=== PATIENT | female | born 1965 | race Caucasian/White ===

== ENCOUNTER → 2020-06-30 | Outpatient (CLI) | payer OTHER ==
[~2020-06-30] MED LIST: FLUO20CA22 PO; MULTCAP PO; [UNRECOGNIZED DRUG - OTHER] PO
--- NOTE | 2020-06-30 14:46 | REP ---
INDICATION: BREAST CA FILE ROOM. COMPARISON: None. TECHNIQUE/RADIOTRACER AND DOSE: Following the intravenous administration of 27.1 mCi technetium 99 M in vitro labeled red blood cells, using the ultra tag method, gated sequential images of the heart are performed in various projections. FINDINGS: Left ventricle demonstrates excellent symmetrical wall motion with no evidence of paradoxical motion. Left ventricular ejection fraction is calculated to be 79.8%. IMPRESSION: Excellent left ventricular wall motion. Left ventricular ejection fraction is 79.8%. <Electronically signed by Reg Crowe > 06/30/20 [id number]
== END ==
LOC: M RAD 12:52
PROVIDERS: ATTEND Specialist
DX: C50.119 Malignant neoplasm of central portion of unspecified female breast (principal)

== ENCOUNTER → 2020-07-02 | Outpatient (CLI) | payer OTHER ==
[~2020-07-02] MED LIST changes: +ISOVUE-370 76% 100ML VIAL As Ordered ONE
--- NOTE | 2020-07-02 17:15 | REP ---
INDICATION: BREAST CA. COMPARISON: None. TECHNIQUE: 100 cc Isovue 370. FINDINGS: The mediastinum and pulmonary yaw are within normal limits. There is no evidence of a mass or adenopathy. There are no pleural or pericardial effusions. The imaged upper abdomen is within normal limits. The imaged osseous structures are within normal limits. Spinal degenerative changes and discogenic degenerative changes are noted throughout. Evaluation of the lung manuel shows no abnormal nodules, masses, or opacities. IMPRESSION: 1. There is no evidence of acute disease. 2. Radiodensities within a left breast density likely secondary to previous surgical procedure. <Electronically signed by Tyron Gannon > 07/02/20 [id number]
== END ==
LOC: M RAD 15:13
PROVIDERS: ATTEND Specialist
DX: C50.919 Malignant neoplasm of unspecified site of unspecified female breast (principal)

== ENCOUNTER → 2020-07-09 | Outpatient (CLI) | payer OTHER ==
[~2020-07-09] MED LIST changes: -ISOVUE-370 76% 100ML VIAL As Ordered ONE; +MILK175C6 PO; +ONDA8TAB10 PO; +PROC10TA4 PO; +VITA-243 PO
--- NOTE | 2020-07-09 17:10 | REP ---
INDICATION: BREAST CANCER. COMPARISON: None. TECHNIQUE/RADIOTRACER AND DOSE: 22.0 mCi of Technetium-99m MDP was injected and standard whole-body bone scanning is acquired. FINDINGS: There is a normal distribution of skeletal tracer with uptake in bilateral kidneys and in the urinary bladder. There is no evidence to suggest skeletal metastatic disease. IMPRESSION: Negative whole body radionuclide bone scan. <Electronically signed by Brannon Arreaga > 07/09/20 [id number]
== END ==
LOC: M RAD 10:02
PROVIDERS: ATTEND Specialist
DX: Z12.39 Encounter for other screening for malignant neoplasm of breast (principal)
CPT/HCPCS: 78306; A9503

== ENCOUNTER → 2020-07-09 | Outpatient (CLI) | payer OTHER ==
[~2020-07-09] MED LIST changes: +LIDOCAINE 1% MDV 20ML VIAL As Ordered ONE; +MIDAZOLAM INJ 2MG/2ML VIAL (J2250 PER 1MG) As Ordered ONE; +ceFAZolin 1GM VIAL (J0690 PER 500MG) As Ordered ONE; +diphenhydrAMINE 50MG/ML VIAL (J1200) As Ordered ONE; +fentaNYL 100 MCG/2 ML INJECTION (J3010) As Ordered ONE
--- NOTE | 2020-07-09 12:57 | POST-OPPD ---
Postoperative Procedure Note Date Of Procedure: Jul 09, 2020 Time Of Procedure: 12:53 IR ultrasound and fluoroscopy guided port placement IR Ultrasound of the neck. IR Moderate sedation. Clinical indication: Left-sided breast cancer. Needs chemotherapy. Physician: Dr. Gardiner. Procedure: The patient was advised of the benefits, risks, and alternatives of the procedure and informed consent was obtained. A time-out was performed with verification of the patient's name, MRN, site of procedure and type of procedure to be performed. The patient was positioned in the supine position on the angiographic table. The site was prepped and draped in the usual sterile fashion. Moderate sedation was performed by the physician including the presence of an independent trained RN who assisted and monitored the patient's level of consciousness and physiologic status. Following the administration of fentanyl and Versed , the physician spent 45 minutes of continuous face to face time with the patient. Ultrasound of the neck reveals a patent and compressible right internal jugular vein. A hardwood sawyer radiograph reveals no gross abnormality. The neck and anterior chest wall were anesthetized with lidocaine. The right internal jugular vein was accessed using a microintroducer needle under ultrasound guidance, via a lateral approach. An 018 wire was advanced into the superior vena cava, the needle was removed and a microsheath was placed. An Amplatz wire was then passed into the inferior vena cava. An incision at the internal jugular vein access site and anterior chest wall were made using a scalpel. An incision was made at the anterior chest wall. A small pocket was created using a combination of blunt and sharp dissection. A tunneling device was then used to pass the catheter from the pocket to the neck puncture site. An 8- [place] Angio NorSun Smart power port was then positioned in the pocket. The catheter was then measured and cut. The introducer sheath was exchanged for a peel-away sheath. The catheter was passed through the peel-away sheath into the internal jugular vein and the peel-away sheath was removed. The port tip was positioned at the cavoatrial junction. The port was then accessed with a Goodman needle. The port flushes and aspirates well. The puncture site in the neck was closed. The chest wall incision was then closed with 2-0 Vicryl and 4-0 Monocryl. Glue and Steri- Strips were applied. A sterile dressing was then applied. The patient tolerated the procedure well and was returned to the PRU in stable condition. Estimated blood loss: <5 ml. Complications: None. Conclusion: 1. Successful placement of an 8-Ivor[place] Angio dynamics Smart power port via the right internal jugular vein. The port is ready for immediate use. 2. Patient to follow up in IR clinic in 2 weeks. Thank you for this referral. FIOR GARDINER MD Jul 09, 2020 12:57
[2020-07-09 15:30] VITALS: BP 114/71
== END ==
LOC: M IRPRO 10:56
PROVIDERS: ATTEND Radiology Diagnostic Radiology
DX: C50.912 Malignant neoplasm of unspecified site of left female breast (principal); Z80.0 Family history of malignant neoplasm of digestive organs; Z80.3 Family history of malignant neoplasm of breast; Z88.5 Allergy status to narcotic agent; Z88.6 Allergy status to analgesic agent
CPT/HCPCS: 36561; 99152; 99153; C1769; C1788; C1894; J0690; J1200; J1642; J1644; J2250; J3010

== ENCOUNTER → 2020-11-06 | Outpatient (CLI) | payer OTHER ==
[~2020-11-06] MED LIST changes: +AMBI5TAB PO; +KEFL500C17 PO; +LIDO2.5C15 TOP; -LIDOCAINE 1% MDV 20ML VIAL As Ordered ONE; -MIDAZOLAM INJ 2MG/2ML VIAL (J2250 PER 1MG) As Ordered ONE; +MULT-90 PO; -ceFAZolin 1GM VIAL (J0690 PER 500MG) As Ordered ONE; -diphenhydrAMINE 50MG/ML VIAL (J1200) As Ordered ONE; -fentaNYL 100 MCG/2 ML INJECTION (J3010) As Ordered ONE
--- NOTE | 2020-11-06 13:33 | RADONC.CN ---
Radiation Oncology Hx/Consult Radiation Oncology Consult Date of Service: Nov 06, 2020 Pt Identifier Yesika Anderson is a 55 year old female with with a family history of breast and colon cancer, who has a screening detected left breast cancer pT1cN0(sn)M0 triple negative Grade 3. She is s/p lumpectomy and SLNB on 05/13/[address] Hanna. She has received adjuvant AC+T chemotherapy with Dr. Lorenzo. She is scheduled to complete her taxol on 11/24/20 and is seen for consideration of adjuvant RT. Diagnosis/Treatment History Oncologic History 03/27/20 Mammogram ([facility]) with upper left breast lesion 04/01/20 Biopsy with IDC triple negative 04/21/20 MRI without regional disease 05/13/20 Lumpectomy and SLNB ([facility]) pT1cN0(sn)M0 IDC Grade 3 margins negative 07/15/20-08/25/20 AC chemo x 4 cycles 09/08/19-11/25/19 (anticipated completion) Weekly taxol x 12 myRisk negative Breast History: 2 interrupted pregnancies 1st @ 29 Menses @ 14 Menopause @ 49 No OCP No HRT Interval History Yesika feels well. She notes some hair regrowth. She has no tingling in the fingers or toes. She is fatigued. She works in the [employer] in [place]. She is currently off work. No impaired ROM or swelling LUE. Some axillary numbness, mild tightness with active ROM but no pain. Past Medical History: Depression Past Surgical History: BL carpal tunnel release C section Family History: Mother breast cancer Brother colon cancer Maternal aunt breast cancer Maternal uncle colon cancer Maternal grandmother breast cancer Maternal cousin colon cancer Social History: Never smoker Never drinker Allergies / Meds Allergies: Coded Allergies: acetaminophen (Verified Allergy, Intermediate, HIVES, 06/26/20) oxycodone (Verified Allergy, Intermediate, HIVES, 06/26/20) Home Meds Active Scripts Zolpidem Tartrate (Ambien) 5 Mg Tablet, 5 MG PO QHSP PRN for SLEEP MDD 1, #20 TAB 0 Refills Prov:MADHAVI LORENZO MD 10/30/20 Lidocaine/Prilocaine (Lidocaine-Prilocaine Cream) 2.5%/2.5% Cream..g., 1 APLCT TOP ASDIRECTED, #30 GRAM Prov:MADHAVI LORENZO MD 09/15/20 Prochlorperazine Maleate (Prochlorperazine Maleate) 10 Mg Tablet, 10 MG PO Q8HP PRN for NAUSEA OR VOMITING for 15 Days, #60 TAB 2 Refills TAKE ONE TAB BY MOUTH EVERY 8 HOURS NEEDED FOR NAUSEA/VOMITING Prov:MADHAVI LORENZO MD 07/14/20 Ondansetron HCl (Ondansetron HCl) 8 Mg Tablet, 8 MG PO TID PRN for NAUSEA OR VOMITING, #60 TAB 2 Refills TAKE ONE TAB BY MOUTH EVERY 8 HOURS NEEDED FOR NAUSEA/VOMITING Prov:MADHAVI LORENZO MD 07/14/20 Reported Medications Multivitamin (Multivitamin) 1 Each Tablet, 1 EACH PO, TAB 08/12/20 Milk Thistle Seed Extract (Milk Thistle) 175 Mg Capsule, 175 MG PO DAILY, CAP 07/09/20 Ascorbic Acid (Vitamin C) 500 Mg Tablet, 250 MG PO DAILY, TAB 07/09/20 Fluoxetine Hcl (Fluoxetine HCl) 20 Mg Capsule, 20 MG PO DAILY for 30 Days, #30 CAP 06/26/20 Review of Systems Constitutional: Denies: Chills, Fever, Night Sweats Eyes: Denies: Pain, Vision change HEENT: Denies: Head Aches, Dysphagia, Sore Throat Skin: Denies: Rash, Lesions, Bruising Pulmonary: Denies: Dyspnea, Cough Cardiovascular: Denies: Chest Pain, Palpitations, Edema Breast: Denies: Other Breast Complaints Gastrointestinal: Denies: Nausea, Vomiting, Abdominal Pain, Diarrhea, Constipation, Melena, Hematochezia, Other Symptoms Genitourinary: Denies: Dysuria, Frequency, Incontinence Hematologic: Denies: Bruising, Petecchia, Enlarged Lymph Nodes Musculoskeletal: Denies: Neck pain, Shoulder pain, Arm pain, Back pain, Hand pain, Leg pain, Foot pain, Joint pain, Muscle pain, Spasms, Gout, Joint sweling, Muscle stiffness, Midthoracic pain, Other Neurological: Denies: Weakness, Numbness, Incoordination Psych: Reports: Mood Normal; Denies: Memory Issues, Thoughts of Self Harm Vital Signs Ht 60" Wt 136 BMI 26 T 98 P 72 RR 16 BP 127/90 O2 98% Pain 0 Fatigue 3 General Exam: Positive: Alert, Cooperative, No Acute Distress Eye Exam: Positive: PERRLA, EOMI ENT EXAM: Positive: Mucous membr. moist/pink, Pharynx Normal Neck Exam: Negative: Thyromegaly, Lymphadenopathy Chest Exam: Positive: Normal air movement; Negative: Rales, Rhonchi, Wheezing Heart Exam: Positive: Rate Normal, Regular Rhythm Breast Exam: Positive: Symmetric Bilaterally, Other Breast Findings (Well hidden left periareolar incision, no axillary adenopathy BL); Negative: Lumps or Masses, Nipple Retraction, Nipple Discharge, Skin Changes Abdomen Exam: Positive: Soft; Negative: Tenderness, Mass Extremity Exam: Negative: Edema, Tenderness Skin Exam: Positive: Nl turgor and temperature; Negative: Rash Neuro Exam: Positive: Normal Gait, Normal Speech, Cranial Nerves 3-12 NL Psych Exam: Positive: Mental status NL, Mood NL, Memory Intact Diagnostic and Laboratory Diagnostic Review Radiologic images, relevant labs and pathology reports were personally reviewed and discussed with Ms. Anderson. Assessment and Plan Impression Ms. Anderson is a 55 year old female with a family history of breast and colon cancer, who has a screening detected left breast cancer pT1cN0(sn)M0 triple negative Grade 3. She is s/p lumpectomy and SLNB on 05/13/[address] Hanna. She has received adjuvant AC+T chemotherapy with Dr. Lorenzo. She is scheduled to complete her taxol on 11/24/20 and is seen for consideration of adjuvant RT. Stage Left upper inner breast pT1cN0(sn)M0 triple negative grade 3 IDC stage IB Performance Status ECOG 0 Plan We had an extensive discussion with Ms. Anderson regarding the diagnosis at hand and available therapeutic options. She is doing well and nearing the end of adjuvant chemotherapy. She has minimal side effects from treatment to date. I reviewed her pathology in detail including her myRisk profile which was negative for known variants despite her strong family of breast and colon cancer. We discussed that in her situation high risk screening with mammogram and MRI would be appropriate after treatment is completed. She states that she has previously scheduled screening with [facility] in [place] in the coming month. I encouraged her to reschedule this for the summertime once RT is complete and she has had time to heal. With respect to adjuvant RT, I recommend 40 Gy in 15 fractions to the left whole breast followed by 10 Gy in 5 fractions tumor bed boost. As she is young and healthy and had a left-sided cancer, I think she would benefit from prone breast radiation. Her anatomy on my exam seems favorable to try this at simulation. If she is unable to tolerate prone positioning at simulation, then we would pursue DIBH as an alternative. We discussed the logistics of receiving radiation therapy in detail including the need for a 1-time planning session. This can occur the week of 12/08/20 assuming she completes her taxol cycles as scheduled We reviewed the side effects of treatment including fatigue, fibrosis, skin reaction, and late cardiac effects, which are mitigated by the aforementioned treatment techniques. We also discussed returning to work contingent upon how she does with radiation. I think she should remain on leave for now. After discussing the risks, benefits and alternatives to radiation therapy, Ms. Anderson was amenable to pursuing radiotherapy. All questions were answered to the patient's satisfaction. We instructed the patient that if there were any questions,concerns or changes in clinical status in the interim to contact us. Recommendations Prone WBI 40 Gy in 15 fractions + 10 Gy in 5 fraction tumor bed boost Simulation ~12/08/20 Reschedule screening with [facility] until after completion of RT Billing Statement Total time of [51] minutes was spent preparing for the visit [3], obtaining HPI [5], examining the patient [4], reviewing diagnostic tests [5], discussing management options [22], coordinating care [2], and writing this note [10]. ADIA COPELAND MD Nov 06, 2020 13:30
== END ==
LOC: M ONCR 10:37
PROVIDERS: ATTEND General Practice
DX: C50.919 Malignant neoplasm of unspecified site of unspecified female breast (principal); Z85.038 Personal history of other malignant neoplasm of large intestine

== ENCOUNTER → 2020-12-26 | Outpatient (RCR) | payer OTHER | LOC: M ONCR 12-09 10:40 | PROVIDERS: ATTEND General Practice | DX: C50.212 Malignant neoplasm of upper-inner quadrant of left female breast (principal) ==

== ENCOUNTER → 2021-01-08 | Outpatient (CLI) | payer OTHER ==
[~2021-01-08] MED LIST changes: +ISOVUE-300 61% 50ML VIAL As Ordered ONE; +LIDO1CRE42 TOP; -LIDO2.5C15 TOP; +LIDOCAINE 1% MDV 20ML VIAL As Ordered ONE; +MIDAZOLAM INJ 2MG/2ML VIAL (J2250 PER 1MG) As Ordered ONE; +NS 1,000 ML IV SCH; +ceFAZolin 1GM VIAL (J0690 PER 500MG) As Ordered ONE; +ceFAZolin SOD 2 GM in IV 1 EA IV ONE; +diphenhydrAMINE 50MG/ML VIAL (J1200) As Ordered ONE; +fentaNYL 100 MCG/2 ML INJECTION (J3010) As Ordered ONE
--- NOTE | 2021-01-08 13:44 | IRHP ---
[facility] IR Pre-Procedure H & P General Date of Service: January 08, 2021 Procedure: Same Day Surgery Interval History and Physical I have seen the patient and reviewed last H & P performed within 30 days. There is no significant interval change. History of Present Illness Chief Complaint The patient is a 55-year-old female admitted with a reason for visit of Breast Ca Chemo Complete. PRE-PROCEDURE DIAGNOSIS:breast ca. treatment complete. HEART: normal rate. LUNGS: normal breathing at rest. ASA Classification ASA Classification: II-Mild systemic disease Mallampati Score: II NPO: Yes Problems with prior sedation: No Obstructive Sleep Apnea: No Plan moderate sedation Allergies Coded Allergies: acetaminophen (Verified Allergy, Intermediate, HIVES, 06/26/20) oxycodone (Verified Allergy, Intermediate, HIVES, 06/26/20) Home Medications Scheduled Ascorbic Acid (Vitamin C), 250 MG PO DAILY, (Reported) Fluoxetine Hcl (Fluoxetine HCl), 20 MG PO DAILY, (Reported) Lidocaine/Prilocaine (Lidocaine-Prilocaine Cream), 1 APLCT TOP ASDIRECTED Milk Thistle Seed Extract (Milk Thistle), 175 MG PO DAILY, (Reported) Scheduled PRN Ondansetron HCl (Ondansetron HCl), 8 MG PO TID PRN for NAUSEA OR VOMITING Prochlorperazine Maleate (Prochlorperazine Maleate), 10 MG PO Q8HP PRN for NAUSEA OR VOMITING Zolpidem Tartrate (Ambien), 5 MG PO QHSP PRN for SLEEP Miscellaneous Medications Multivitamin (Multivitamin), 1 EACH PO, (Reported) VS, I&O, 24H, Fishbone Vital Signs/I&O Vital Signs Date Time Temp Pulse Resp B/P (MAP) Pulse Ox O2 Delivery O2 Flow Rate FiO2 01/08/21 13:42 60 18 100 Nasal Cannula 2.0 01/08/21 12:30 97.8 FIOR GONZALEZ MD January 08, 2021 13:44
[2021-01-08 15:48] VITALS: BP 132/79
--- NOTE | 2021-01-12 09:50 | IRPON ---
IR Postoperative Note Date Of Procedure: January 08, 2021 Time Of Procedure: 16:00 IR Postoperative Note IR Port Removal / Explant. IR Moderate sedation. Clinical indication: Breast cancer. Treatment completed. Patient would like port removed. Physician: Dr. Gardiner Procedure: The patient was advised of the benefits, risks, and alternatives of the procedure and informed consent was obtained. A time out was performed with verification of the patient's name, MRN, site of procedure, and type of procedure to be performed. The patient was positioned in the supine position on the angiographic table. The site was prepped and draped in the usual sterile fashion. Moderate sedation was performed by the physician including the presence of an independent trained RN who assisted in monitoring the patient's level of consciousness and physiological status. Following the administration of fentanyl and Versed the physician spent 30 minutes of continuous [id number] time with the patient. A intelligence support officer radiograph reveals a right sided port. The soft tissues overlying the port were anesthetized with lidocaine. An incision was made over the port using a 15 blade scalpel in the location of the prior incision. The catheter was then freed with blunt dissection and extracted. Pressure was applied to obtain hemostasis. The port was then freed with blunt dissection and subsequently removed. There were no signs of infection. After hemostasis was achieved, the incision was closed with interrupted deep 3-0 Vicryl sutures and subcuticular Monocryl suture followed by glue and steri-strips. The site was covered with a sterile dressing. The patient tolerated the procedure well and was returned to the PRU in stable condition. EBL:Less than 5 mL Complications:None. Conclusions: 1. Successful explant of a right-sided port. 2. No signs of infection. Thank you for this referral FIOR GARDINER MD January 12, 2021 09:50
== END ==
LOC: M IRPRO 12:19
PROVIDERS: ATTEND Radiology Diagnostic Radiology
DX: C50.919 Malignant neoplasm of unspecified site of unspecified female breast (principal); Z45.2 Encounter for adjustment and management of vascular access device
CPT/HCPCS: 36590; 99152; 99153; J0690; J1200; J1644; J2250; J3010

== ENCOUNTER 2021-01-16 11:15 | Outpatient (RCR) | payer OTHER ==
[~2021-01-16 11:15] MED LIST changes: -ISOVUE-300 61% 50ML VIAL As Ordered ONE; -LIDOCAINE 1% MDV 20ML VIAL As Ordered ONE; -MIDAZOLAM INJ 2MG/2ML VIAL (J2250 PER 1MG) As Ordered ONE; -NS 1,000 ML IV SCH; -ceFAZolin 1GM VIAL (J0690 PER 500MG) As Ordered ONE; -ceFAZolin SOD 2 GM in IV 1 EA IV ONE; -diphenhydrAMINE 50MG/ML VIAL (J1200) As Ordered ONE; -fentaNYL 100 MCG/2 ML INJECTION (J3010) As Ordered ONE
== END 2021-01-26 ==
LOC: M ONCR 11:15
PROVIDERS: ATTEND General Practice
DX: C50.212 Malignant neoplasm of upper-inner quadrant of left female breast (principal)

== ENCOUNTER → 2021-02-03 | Outpatient (POV) | payer OTHER ==
[~2021-02-03] VITALS: Ht 154.9 cm; Wt 59.0 kg
[2021-02-03 08:47] VITALS: BP 119/88
--- NOTE | 2021-02-04 12:57 | IRPN ---
[facility] IR Progress Note IR Progress Note DATE: Feb 03, 2021 FOLLOW-UP: Patient is status post port removal. Patient states she is doing well. No fevers, chills, pain at site or discharge from site. ON EXAMINATION: Port removal site appears to be healing well. No redness, swelling or discharge. IMPRESSION: Doing well status post port removal. No further follow-up scheduled unless initiated by patient and/or referring provider. Thank you for this referral Allergies Coded Allergies: acetaminophen (Verified Allergy, Intermediate, HIVES, 06/26/20) oxycodone (Verified Allergy, Intermediate, HIVES, 06/26/20) VS,Fishbone, I+O VS, Fishbone, I+O Vital Signs Date Time Temp Pulse Resp B/P (MAP) Pulse Ox O2 Delivery O2 Flow Rate FiO2 02/03/21 08:47 97.0 69 20 119/88 (98) 100 Room Air 119.0 FIOR GONZALEZ MD Feb 04, 2021 12:57
== END ==
LOC: M IRPOV 08:35
PROVIDERS: ATTEND Radiology Diagnostic Radiology
DX: Z45.2 Encounter for adjustment and management of vascular access device (principal)

== ENCOUNTER → 2021-07-22 | Outpatient (CLI) | payer OTHER ==
[~2021-07-22] MED LIST changes: +BIOT10009 PO; +ONDA-84 PO; -ONDA8TAB10 PO; -PROC10TA4 PO; +PROC10TA5 PO
== END ==
LOC: M ONCR 08:37
PROVIDERS: ATTEND General Practice
DX: C50.212 Malignant neoplasm of upper-inner quadrant of left female breast (principal); Z92.3 Personal history of irradiation; Z92.21 Personal history of antineoplastic chemotherapy; Z88.5 Allergy status to narcotic agent; Z88.6 Allergy status to analgesic agent; Z79.899 Other long term (current) drug therapy

== ENCOUNTER → 2022-07-07 | Outpatient (CLI) | payer OTHER ==
[~2022-07-07] MED LIST changes: +VITA400T15 PO
[2022-07-07 09:13] VITALS: BP 130/84
== END ==
LOC: M WHCPRO 07:58
PROVIDERS: ATTEND Surgery
DX: R92.8 Other abnormal and inconclusive findings on diagnostic imaging of breast (principal); N63.22 Unspecified lump in the left breast, upper inner quadrant

== ENCOUNTER → 2022-12-27 | Outpatient (CLI) | payer OTHER | LOC: M WHC 13:10 | PROVIDERS: ATTEND Nurse Practitioner Women's Health | DX: D24.2 Benign neoplasm of left breast (principal) | CPT/HCPCS: 77065; G0279 ==

== ENCOUNTER → 2023-07-01 | Outpatient (CLI) | payer OTHER ==
[~2023-07-01] MED LIST changes: -LIDO1CRE42 TOP; +LIDO30CR18 TOP; +PROHANCE 279.3MG/ML 15ML VIAL ONE
== END ==
LOC: M PLAIMG 08:47
PROVIDERS: ATTEND Specialist
DX: C50.912 Malignant neoplasm of unspecified site of left female breast (principal)
CPT/HCPCS: A9576; C8908